=== PATIENT | female | born 1980 | race Two or more races ===

== ENCOUNTER 2021-03-01 08:45 | Inpatient (IN) | payer OTHER ==
[~2021-03-01] VITALS: Ht 165.1 cm; Wt 52.2 kg
== END 2021-03-08 09:52 | disposition home or self-care (01) | DRG 743 ==
LOC: O/R 03-07 06:55 → SURH 03-07 08:30 → OB/GYN 03-07 13:08 → SURH 03-07 18:15 → OB/GYN 03-08 09:52
PROVIDERS: ADMIT Obstetrics & Gynecology Gynecology; ATTEND Obstetrics & Gynecology Gynecology
PROC: 0UB90ZZ Excision of Uterus, Open Approach (ICD-10-PCS; principal; 2021-03-07 08:30)
DX: D25.0 Submucous leiomyoma of uterus (principal); N84.0 Polyp of corpus uteri; D25.1 Intramural leiomyoma of uterus; D25.2 Subserosal leiomyoma of uterus; N92.0 Excessive and frequent menstruation with regular cycle; R10.2 Pelvic and perineal pain